=== PATIENT | male | born 1950 | race Caucasian/White ===

== ENCOUNTER 2017-08-09 07:50 | Emergency (ER) | payer MEDICARE | END 2017-08-09 08:42 | disposition home or self-care (01) | LOC: FTE 07:50 | DX: T40.2X1A Poisoning by other opioids, accidental (unintentional), initial encounter (principal) | CPT/HCPCS: 99282 ==

== ENCOUNTER 2017-09-09 05:05 | Emergency (ER) | payer MEDICARE ==
[2017-09-09] MEDS: SOD CHLORIDE 0.9% 1,000 ML IV (05:44)
[2017-09-09] MEDS: morphine 4 MG/ML VIAL IV (05:45)
[2017-09-09] MEDS: ONDANSETRON 4 MG INJ IV ×4 (05:45→08:07)
[2017-09-09 05:53] LABS: ADD MAN DIFF? NO
[2017-09-09 05:56] LABS: BASOPHIL # 0.1 10^3/ul (0.0-0.1); BASOPHILS % 1.1 % (0.0-2.0); EOSINOPHILS # 0.1 10^3/ul (0.0-0.5); EOSINOPHILS % 1.4 % (0.0-7.0); HEMATOCRIT 38.9 % (42.0-52.0); HEMOGLOBIN 13.3 g/dl (14.0-18.0); LYMPHOCYTES # 2.1 10^3/ul (0.8-2.9); MEAN CORPUSCULAR HEMOGLOBIN 29.2 pg (29.0-33.0); MEAN CORPUSCULAR HGB CONC 34.2 g/dl (32.0-37.0); MEAN CORPUSCULAR VOLUME 85.5 fl (82.0-101.0); MEAN PLATELET VOLUME 10.3 fl (7.4-10.4); MONOCYTE # 0.5 10^3/ul (0.3-0.9); NEUTROPHIL # 3.7 10^3/ul (1.6-7.5); NEUTROPHILS % 56.3 % (39.0-77.0); PLATELET COUNT 187 10^3/UL (140-415); RED BLOOD COUNT 4.55 10^6/ul (4.70-6.10); RED CELL DISTRIBUTION WIDTH 12.7 % (11.5-14.5)
[2017-09-09 05:56] LABS: WHITE BLOOD COUNT 6.5 10^3/ul (4.8-10.8)
[2017-09-09] MEDS: HYDROmorphONE 0.5 MG/0.5 ML SYG IV (06:09)
[2017-09-09 06:22] LABS: ALANINE AMINOTRANSFERASE 24 IU/L (13-69); ALBUMIN/GLOBULIN RATIO 1.17; ALKALINE PHOSPHATASE 76 IU/L (42-121); ANION GAP 12 (8-16); ASPARTATE AMINO TRANSFERASE 23 IU/L (15-46); BILIRUBIN,INDIRECT 0.5 mg/dl (0-1.1); BILIRUBIN,TOTAL 0.5 mg/dl (0.2-1.3); BLOOD UREA NITROGEN 9 mg/dl (7-20); CALCIUM 9.9 mg/dl (8.4-10.2); CARBON DIOXIDE 27 mmol/L (21-31); CHLORIDE 103 mmol/L (97-110); CREATININE 0.89 mg/dl (0.61-1.24); GLUCOSE 110 mg/dl (70-220); LIPASE 15 U/L (23-300); POTASSIUM 3.4 mmol/L (3.5-5.1); SODIUM 139 mmol/L (135-144); TOTAL PROTEIN 7.4 g/dl (6.1-8.1)
[2017-09-09] MEDS: HYDROmorphONE 1 MG/5 ML IV SYRINGE IV ×3 (06:22→08:07)
[2017-09-09 06:34] LABS: ADD UMIC NO; UR ASCORBIC ACID NEGATIVE (NEGATIVE); UR BILIRUBIN (Dip) NEGATIVE (NEGATIVE); UR BLOOD (Dip) NEGATIVE (NEGATIVE); UR CLARITY CLEAR (CLEAR); UR COLOR YELLOW (YELLOW); UR GLUCOSE (Dip) NEGATIVE (NEGATIVE); UR KETONES (Dip) NEGATIVE (NEGATIVE); UR LEUKOCYTE ESTERASE (Dip) NEGATIVE Leu/ul (NEGATIVE); UR NITRITE (Dip) NEGATIVE (NEGATIVE); UR SPECIFIC GRAVITY (Dip) 1.008 (1.003-1.030); UR TOTAL PROTEIN (Dip) NEGATIVE (NEGATIVE); UR UROBILINOGEN (Dip) NEGATIVE (NEGATIVE)
[2017-09-09 06:50] LABS: TROPONIN-I < 0.012 ng/ml (0.00-0.12)
== END 2017-09-09 08:28 | disposition home or self-care (01) ==
LOC: E/R 05:05
DX: R10.32 Left lower quadrant pain (principal)
CPT/HCPCS: 36415; 74176; 80053; 81003; 83690; 84484; 85025; 96374; 96375; 96376; 99285-25

== ENCOUNTER 2017-09-10 05:55 | Emergency (ER) | payer MEDICARE ==
[2017-09-10] MEDS: KETOROLAC 15 MG INJ IV (07:44)
[2017-09-10] MEDS: DIPHENHYDRAMINE 50 MG INJ IV (07:44)
[2017-09-10] MEDS: METOCLOPRAMIDE 10 MG INJ IV (07:44)
[2017-09-10] MEDS: SOD CHLORIDE 0.9% 1,000 ML IV (07:44)
[2017-09-10 07:48] LABS: ADD MAN DIFF? NO
[2017-09-10 07:55] LABS: WHITE BLOOD COUNT 8.5 10^3/ul (4.8-10.8)
[2017-09-10 07:55] LABS: BASOPHIL # 0.1 10^3/ul (0.0-0.1); BASOPHILS % 0.7 % (0.0-2.0); EOSINOPHILS % 0.2 % (0.0-7.0); HEMATOCRIT 40.5 % (42.0-52.0); HEMOGLOBIN 14.2 g/dl (14.0-18.0); LYMPHOCYTES # 1.9 10^3/ul (0.8-2.9); LYMPHOCYTES % 22.1 % (15.0-51.0); MEAN CORPUSCULAR HEMOGLOBIN 29.1 pg (29.0-33.0); MEAN CORPUSCULAR HGB CONC 35.1 g/dl (32.0-37.0); MEAN PLATELET VOLUME 10.6 fl (7.4-10.4); MONOCYTE # 0.5 10^3/ul (0.3-0.9); MONOCYTES % 5.5 % (0.0-11.0); NEUTROPHIL # 6.1 10^3/ul (1.6-7.5); NEUTROPHILS % 71.3 % (39.0-77.0); PLATELET COUNT 211 10^3/UL (140-415); RED BLOOD COUNT 4.88 10^6/ul (4.70-6.10); RED CELL DISTRIBUTION WIDTH 12.6 % (11.5-14.5)
[2017-09-10 08:14] LABS: ALANINE AMINOTRANSFERASE 25 IU/L (13-69); ALBUMIN 4.2 g/dl (3.3-4.9); ALBUMIN/GLOBULIN RATIO 1.16; ALKALINE PHOSPHATASE 81 IU/L (42-121); ANION GAP 16 (8-16); ASPARTATE AMINO TRANSFERASE 37 IU/L (15-46); BILIRUBIN,INDIRECT 0.6 mg/dl (0-1.1); BILIRUBIN,TOTAL 0.6 mg/dl (0.2-1.3); BLOOD UREA NITROGEN 10 mg/dl (7-20); CALCIUM 9.9 mg/dl (8.4-10.2); CARBON DIOXIDE 26 mmol/L (21-31); CHLORIDE 100 mmol/L (97-110); CREATININE 0.77 mg/dl (0.61-1.24); GLUCOSE 107 mg/dl (70-220); POTASSIUM 3.6 mmol/L (3.5-5.1); SODIUM 138 mmol/L (135-144); TOTAL PROTEIN 7.8 g/dl (6.1-8.1)
[2017-09-10 08:17] LABS: LACTIC ACID 1.4 mmol/L (0.5-2.0)
[2017-09-10] MEDS: IOHEXOL 100 ML (08:25)
[2017-09-10] MEDS: SOD CHLORIDE 0.9% 100 ML (08:25)
[2017-09-10] MEDS: IOHEXOL 350MG/ML 50 ML BTL (08:26)
== END 2017-09-10 13:23 | disposition home or self-care (01) ==
LOC: E/R 13:23
DX: K59.00 Constipation, unspecified (principal); G89.29 Other chronic pain
CPT/HCPCS: 75635; 80053; 83605; 85025; 96374; 96375; 99285-25

== ENCOUNTER 2017-09-18 05:15 | Emergency (ER) | payer MEDICARE ==
[2017-09-18] MEDS: LACTULOSE 30ML CUP PO (06:39)
[2017-09-18] MEDS: BISACODYL 10 MG SUPP PR (06:39)
== END 2017-09-18 07:22 | disposition home or self-care (01) ==
LOC: E/R 05:15
DX: K59.00 Constipation, unspecified (principal); Z87.891 Personal history of nicotine dependence
CPT/HCPCS: 99283